=== PATIENT | male | born 1985 | race Caucasian/White ===

== ENCOUNTER 2022-07-11 07:26 | Outpatient (CLI) | payer OTHER, SELFPAY ==
[2022-07-11 10:13] LABS: Albumin* 4.5 g/dL (3.3-5.0); Chloride* 104 mmol/L (96-114); Sodium* 140 mmol/L (135-149)
[2022-07-11 10:14] LABS: Potassium* 4.8 mmol/L (3.6-5.1)
[2022-07-11 10:15] LABS: Cholesterol* 216 mg/dL (90-199)
[2022-07-11 10:16] LABS: Alanine Aminotransferase* 19 U/L (4-50); Alkaline Phosphatase* 65 U/L (40-150); Aspartate Amino Transferase* 21 U/L (12-35); Bilirubin Total* 0.6 mg/dL (0.1-1.5); Blood Urea Nitrogen* 11 mg/dL (5-24); Calcium* 9.6 mg/dL (8.4-10.6); Carbon Dioxide* 29 mmol/L (20-32); Creatinine* 0.9 mg/dL (0.5-1.5); Estimated Glomerular Filt Rate 114 ml/min; Glucose* 111 mg/dL (60-115); HDL Cholesterol* 38 mg/dL (>=40); LDL Cholesterol Calculated 136 mg/dL (<100); Total Protein* 7.1 g/dL (6.0-8.3); Triglycerides* 208 mg/dL (40-149)
== END 2022-07-11 07:27 | disposition home or self-care (01) ==
PROVIDERS: PCP Family Medicine; Visit Provider Family Medicine
DX: E78.5 Hyperlipidemia, unspecified (principal)
CPT/HCPCS: 80053; 80061

== ENCOUNTER 2023-10-30 07:41 | Outpatient (CLI) | payer OTHER, SELFPAY | END 2023-10-30 07:42 | disposition home or self-care (01) | LOC: NFLDREF 11-01 08:38 | PROVIDERS: PCP Family Medicine; Referring Provider Family Medicine; Visit Provider Family Medicine | DX: Z00.00 Encounter for general adult medical examination without abnormal findings (principal); E78.5 Hyperlipidemia, unspecified; R53.83 Other fatigue; Z13.9 Encounter for screening, unspecified | CPT/HCPCS: 80053; 80061 ==

== ENCOUNTER 2024-11-21 08:00 | Outpatient (CLI) | payer BC, SELFPAY | END 2024-11-21 08:01 | disposition home or self-care (01) | LOC: NFLDREF 11-22 17:42 | PROVIDERS: PCP Family Medicine; Referring Provider Family Medicine; Visit Provider Family Medicine | DX: E78.5 Hyperlipidemia, unspecified (principal); R53.83 Other fatigue | CPT/HCPCS: 80053; 80061 ==